=== PATIENT | female | born 1960 | race Caucasian/White ===

== ENCOUNTER 2016-10-10 10:45 | Outpatient (CLI) | payer OTHER ==
[2016-10-10 18:09] LABS: BASOPHILS # (AUTO) 0.1 10^3/uL (0.0-0.1); BASOPHILS % (AUTO) 0.9 %; EOSINOPHILS # (AUTO) 0.2 10^3/uL (0.0-0.7); EOSINOPHILS % (AUTO) 3.5 %; HCT - HEMATOCRIT 37.3 % (37.0-47.0); HGB - HEMOGLOBIN 12.6 g/dL (12.0-16.0); LYMPHOCYTES # (AUTO) 1.4 10^3/uL (1.5-3.5); LYMPHOCYTES % (AUTO) 23.9 %; MEAN CORPUSCULAR HEMOGLOBIN 30.5 pg (27.0-31.0); MEAN CORPUSCULAR HGB CONC 33.7 g/dL (32.0-36.0); MEAN CORPUSCULAR VOLUME 90.5 fL (81.0-99.0); MEAN PLATELET VOLUME 9.4 fL (7.9-10.8); MONOCYTES # (AUTO) 0.4 10^3/uL (0.0-1.0); MONOCYTES % (AUTO) 7.3 %; NEUTROPHILS # (AUTO) 3.8 10^3/uL (1.5-6.6); NEUTROPHILS % (AUTO) 64.4 %; NUCLEATED RED BLOOD CELLS AUTO 0.1 /100WBC; RED BLOOD COUNT 4.13 10^6/uL (4.20-5.40); RED CELL DISTRIBUTION WIDTH 14.4 % (12.0-15.0); UNCORRECTED WHITE BLOOD COUNT 5.8 x10^3/uL; WHITE BLOOD COUNT 5.8 x10^3/uL (4.8-10.8)
[2016-10-10 18:33] LABS: ALBUMIN/GLOBULIN RATIO 1.7 (1.0-2.2); BILIRUBIN,TOTAL 0.4 mg/dL (0.2-1.0); BUN - BLOOD UREA NITROGEN 14 mg/dL (6-20); CALCIUM 9.2 mg/dL (8.5-10.3); CARBON DIOXIDE - CO2 28 mmol/L (21-32); CHLORIDE 100 mmol/L (101-111); CHOL/HDL RATIO 2.4 (<4.4); CHOLESTEROL 202 mg/dL; CREATININE 0.7 mg/dL (0.4-1.0); GFR - MDRD 87 (>89); GLUCOSE 84 mg/dL (70-100); HDL CHOLESTEROL 83 mg/dL; LDL/HDL RATIO 1.2 (<4.4); POTASSIUM 3.9 mmol/L (3.5-5.0); SODIUM 136 mmol/L (135-145); TOTAL PROTEIN 6.1 g/dL (6.7-8.2); TRIGLYCERIDES 110 mg/dL; VLDL CHOLESTEROL 22 mg/dL
[2016-10-10 18:48] LABS: FERRITIN 8.9 ng/mL (11.0-306.8)
[2016-10-10 19:00] LABS: THYROID STIMULATING HORMONE 0.1 uIU/mL (0.34-5.60)
== END 2016-10-10 10:46 | disposition home or self-care (01) ==
LOC: LAB.F 10:45
PROVIDERS: ATTEND Nurse Practitioner Family
DX: Z00.00 Encounter for general adult medical examination without abnormal findings (principal); E78.5 Hyperlipidemia, unspecified; E03.2 Hypothyroidism due to medicaments and other exogenous substances; E55.9 Vitamin D deficiency, unspecified
CPT/HCPCS: 36415; 80053; 80061; 82306; 82728; 84436; 84439; 84443; 84481; 85025

== ENCOUNTER 2018-03-05 12:44 | Outpatient (CLI) | payer OTHER ==
--- NOTE | 2018-03-05 14:14 | XRAY Report ---
Reason: PAIN IN RT KNEE Procedure Date: 03/05/2018 Accession Number: [id number] / [id number] Procedure: XR - Tib/Fib RT CPT Code: FULL RESULT: EXAM: RIGHT TIBIA/FIBULA RADIOGRAPHY EXAM DATE: 03/05/2018 01:15 PM. CLINICAL HISTORY: Pain in right knee. COMPARISON: None. TECHNIQUE: 2 views. FINDINGS: Bones: Normal. No fracture or bone lesion. Joints: The visualized knee and ankle joints are normal. No effusions. Soft Tissues: Normal. No soft tissue swelling. IMPRESSION: Normal tibia/fibula radiography. [facility]
--- NOTE | 2018-03-05 14:14 | XRAY Report ---
Reason: PAIN IN RIGHT KNEE Procedure Date: 03/05/2018 Accession Number: [id number] / [id number] Procedure: XR - Knee 3 View RT CPT Code: FULL RESULT: EXAM: RIGHT KNEE RADIOGRAPHY EXAM DATE: 03/05/2018 01:15 PM. CLINICAL HISTORY: Pain in right knee. COMPARISON: None. TECHNIQUE: 3 views. FINDINGS: Bones: Normal. No fractures or bone lesions. Joints: Normal. No effusion. No subluxations. Soft Tissues: Normal. No soft tissue swelling. IMPRESSION: No fracture or dislocation. [facility]
== END 2018-03-05 12:45 | disposition home or self-care (01) ==
LOC: DI 12:44
PROVIDERS: ATTEND Nurse Practitioner Family
DX: M25.561 Pain in right knee (principal); M79.661 Pain in right lower leg

== ENCOUNTER 2018-04-17 08:54 | Outpatient (CLI) | payer OTHER ==
--- NOTE | 2018-04-17 09:58 | XRAY Report ---
Reason: LOW BACK PAIN Procedure Date: 04/17/2018 Accession Number: [id number] / [id number] Procedure: XR - Sacrum/Coccyx CPT Code: FULL RESULT: EXAM: SACRUM AND COCCYX RADIOGRAPHY EXAM DATE: 04/17/2018 09:20 AM. HISTORY: LOW BACK PAIN. COMPARISONS: None. TECHNIQUE: 3 views. FINDINGS: Alignment: Sacrum and coccyx are normally aligned. There is 7 mm anterolisthesis of L5-S1, which may be degenerative and/or relate to underlying chronic pars defects. Bones: No acute fracture. No bone lesion. Joints: Lower lumbar spinal degeneration primarily at L5-S1. Mild bilateral SI joint, hip joint DJD. No pubic symphyseal diastasis. Soft Tissues: Unremarkable. IMPRESSION: 1. No acute osseous abnormality. 2. 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 [facility]
--- NOTE | 2018-04-17 10:01 | XRAY Report ---
Reason: LOW BACK PAIN Procedure Date: 04/17/2018 Accession Number: [id number] / [id number] Procedure: XR - Lumbar Spine 2 View CPT Code: FULL RESULT: EXAM: LUMBOSACRAL SPINE RADIOGRAPHY EXAM DATE: 04/17/2018 09:20 AM. CLINICAL HISTORY: LOW BACK PAIN. COMPARISONS: None. TECHNIQUE: 2 views. FINDINGS: Alignment: Approximately 7 mm anterolisthesis at L5-S1. Bones: Last complete disk space designated L5-S1. No acute fracture. There may be chronic pars defects at L5-S1. Disks: Moderate disk height loss at L5-S1. Otherwise preserved. Mild degenerative endplate changes L5-S1. Facets: As above. Sacroiliac Joints: Mild bilateral SI joint degeneration. Mild bilateral hip joint degeneration. Soft Tissues: Paraspinous soft tissues are unremarkable. IMPRESSION: 1. No convincing acute osseous abnormality. 2. Lower lumbar degeneration with approximately 7 mm anterolisthesis at L5-S1, possibly with underlying chronic pars defects. [facility]
--- NOTE | 2018-04-17 10:02 | XRAY Report ---
Reason: LOW BACK PAIN Procedure Date: 04/17/2018 Accession Number: [id number] / [id number] Procedure: XR - Thoracic Spine 2 View CPT Code: FULL RESULT: EXAM: THORACIC SPINE RADIOGRAPHY EXAM DATE: 04/17/2018 09:20 AM. CLINICAL HISTORY: LOW BACK PAIN. COMPARISON: None. TECHNIQUE: 2 views. FINDINGS: Alignment: Mild leftward convex upper thoracic scoliosis centered at T3. Bones: No fractures or bone lesions. Disks: Disk heights are maintained. Mild multilevel degenerative endplate changes. Soft Tissues: Normal. The visualized lungs and cardiomediastinal silhouette are normal. IMPRESSION: 1. No acute osseous abnormality. [facility]
== END 2018-04-17 08:55 | disposition home or self-care (01) ==
LOC: DI 08:54
PROVIDERS: ATTEND Nurse Practitioner Family
DX: M47.9 Spondylosis, unspecified (principal); M43.17 Spondylolisthesis, lumbosacral region; M51.37 Other intervertebral disc degeneration, lumbosacral region; M51.34 Other intervertebral disc degeneration, thoracic region
CPT/HCPCS: 72070; 72100; 72220